=== PATIENT | female | born 1950 | race Caucasian/White ===

== ENCOUNTER → 2016-12-14 | Outpatient (CLI) | payer OTHER ==
--- NOTE | 2016-12-14 11:44 | MM ---
Reason for exam: additional evaluation requested from abnormal screening. Last mammogram was performed less than 1 month ago. History: Patient is postmenopausal. Family history of breast cancer in mother and breast cancer in grandmother. Benign stereotactic core biopsy of the left breast, March 27, 1999. Core biopsy of the left breast. Physical Findings: Nurse did not find any significant physical abnormalities on exam. MG Work Up Mamm w CAD LT LM, spot compression MLO, and spot compression CC view(s) were taken of the left breast. Prior study comparison: November 30, 2016, bilateral MG screening mammo w CAD. December 28, 2013, bilateral digital screening mammo w/CAD. Density upper outer left breast persists. Ultrasound is recommended. These results were verbally communicated with the patient and result sheet given to the patient on 12/14/13. ASSESSMENT: Incomplete: need additional imaging evaluation, BI-RAD 0 RECOMMENDATION: Ultrasound of the left breast.
--- NOTE | 2016-12-14 11:47 | USB ---
Reason for exam: additional evaluation requested from abnormal screening. History: Patient is postmenopausal. Family history of breast cancer in mother and breast cancer in grandmother. Benign stereotactic core biopsy of the left breast, March 27, 1999. Core biopsy of the left breast. US Breast Workup Limited LT Left breast ultrasound demonstrates a 3 x 3 x 3mm cystic lesion at 2 o'clock, 5cm from nipple. These results were verbally communicated with the patient and result sheet given to the patient on 12/14/16. ASSESSMENT: Benign, BI-RAD 2 RECOMMENDATION: Return to routine screening mammogram schedule for both breasts.
== END | disposition home or self-care (01) ==
LOC: RADMAMWWP 10:34
PROVIDERS: ATTEND Internal Medicine
DX: R92.8 Other abnormal and inconclusive findings on diagnostic imaging of breast (principal)
CPT/HCPCS: 76642; G0206

== ENCOUNTER → 2018-03-04 | Outpatient (CLI) | payer OTHER ==
--- NOTE | 2018-03-04 09:09 | XR ---
EXAMINATION TYPE: XR chest 2V DATE OF EXAM: 03/04/2018 COMPARISON: 12/25/2009 INDICATION: Recurrent pneumonia, pain in lungs and right upper quadrant TECHNIQUE: Frontal and lateral views of the chest are obtained. FINDINGS: The heart size is normal. The pulmonary vasculature is normal. The lungs are clear. IMPRESSION: 1. No acute pulmonary process.
== END | disposition home or self-care (01) ==
LOC: RADXRMAIN 08:06
PROVIDERS: ATTEND Family Medicine
DX: R91.8 Other nonspecific abnormal finding of lung field (principal)
CPT/HCPCS: 71046

== ENCOUNTER → 2018-03-12 | Outpatient (CLI) | payer MEDICARE, OTHER ==
--- NOTE | 2018-03-12 09:37 | US ---
EXAMINATION TYPE: US abdomen complete DATE OF EXAM: 03/12/2018 COMPARISON: CT 2013, ultrasound 06/10/2013 CLINICAL HISTORY: R10.11 RIGHT UPPER QUADRANT PAIN. Intermittent epigastric pain x 5 months EXAM MEASUREMENTS: Liver Length: 15.9 cm Gallbladder Wall: 0.2 cm CBD: 0.4 cm Spleen: 12.0 cm Right Kidney: 10.3 x 5.0 x 4.8 cm Left Kidney: 10.8 x 4.8 x 6.4 cm Difficult and limited study due to patient body habitus Pancreas: obscured by overlying midline bowel gas Liver: multiple cystic lesions throughout with largest in right lobe measuring 2.3 x 2.4 x 2.9cm Gallbladder: hyperechoic echoes within gallbladder, possible sludge Evidence for sonographic Alexander's sign: no CBD: visualized portions wnl, limited by overlying bowel gas Spleen: wnl Right Kidney: 2.2 x 1.6 x 1.6cm echogenic shadowing focus inferior pole, 4.7 x 2.4 x 2.5cm bilobed h ypoechoic area superior pole with 1.0cm echogenic shadowing focus along posterior wall Left Kidney: 0.8 x 0.6 x 0.9cm echogenic shadowing focus inferior pole Upper IVC: wnl Abd Aorta: visualized portions wnl, limited by overlying midline bowel gas IMPRESSION: 1. Sludge within the gallbladder. 2. Multiple hepatic cysts. 3. Right renal stones. 4. Mild fatty infiltration of the liver. 5. Complex cyst superior pole right kidney. Follow-up is recommended.
== END | disposition home or self-care (01) ==
LOC: RADUSWWP 07:53
PROVIDERS: ATTEND Family Medicine
DX: N20.0 Calculus of kidney (principal); K76.89 Other specified diseases of liver; K82.8 Other specified diseases of gallbladder; K76.0 Fatty (change of) liver, not elsewhere classified; N28.1 Cyst of kidney, acquired
CPT/HCPCS: 76700

== ENCOUNTER → 2018-12-11 | Outpatient (CLI) | payer MEDICARE ==
--- NOTE | 2018-12-11 12:23 | NM ---
EXAMINATION TYPE: NM stress cardiolite complete DATE OF EXAM: 12/11/2018 COMPARISON: NONE HISTORY: 68-year-old female cardiac murmur and chest pain TECHNIQUE: After the intravenous administration of 10.1 mCi Tc 99m Sestamibi - Rest images obtained 45 minutes post injection. The patient exercised using a AMY protocol and 1 minute prior to peak exercise was injected with 25.8 mCi Tc 99m Sestamibi - Stress images obtained 15 minutes post injecti on. FINDINGS: Targeted heart rate was achieved during performance of the study (132 BPM with a goal of 131 BPM). To melvin exercise time was 3 minutes 59 seconds. Review of stress and rest SPECT images demonstrates decreased intensity of color along the basal infe rior wall, accentuated on stress imaging on the axial SPECT images. There is also decreased perfusion along the basal anterior wall seen on both rest and stress. This could represent an old infarct or a ttenuation artifact. No distinct perfusion abnormality. Gated analysis shows normal wall motion with an estimated left ventricular ejection fraction of 67 %. TID is calculated at 1.04, within normal l imits. IMPRESSION: 1. Very subtle findings with the intensity of color along the basal inferior wall, decreased on stres s. No evelia perfusion defect. A subtle small area of reversibility is difficult to exclude. Further c linical and EKG correlation recommended. 2. Fixed decreased perfusion basal anterior wall suggests either attenuation artifact or a small old infarct.
--- NOTE | 2018-12-12 07:41 | EST ---
EXERCISE STRESS DATE OF SERVICE: 12/11/2018 AGE: 68 SEX: Female HT: 68" WT: 255 pounds PROTOCOL: Cardiolite Toño STAGE: II DURATION OF EXERCISE: Nearly 4 minutes. HEART RATE REST: 56 BLOOD PRESSURE REST: 140/77 MAXIMUM HEART RATE ACHIEVED: 132 MAXIMUM BLOOD PRESSURE: 253/56 85% MPHR: 131 100% MPHR: 154 METS: 5.6 INDICATIONS: Chest pain, murmur. CLINICAL INFORMATION: This is a walking stress Cardiolite scan. Baseline EKG revealed normal sinus rhythm with inferolateral ST-segment depression making this an inconclusive stress test to interpret by EKG criteria. Patient walked on standard Toño protocol for nearly 4 minutes, achieved a maximal heart rate of 132 beats per minute which is 85% of predicted maximal. Rare isolated PVCs were noted. She developed some fatigue and shortness of breath. There was a lot of artifact. There was one ventricular couplet noted. EKG remained inconclusive, but patient did not have angina. By EKG criteria, this is an inconclusive stress test with resting EKG changes, limited exercise capacity, but no subjective symptoms of angina. The nuclear scan results, which are more pertinent, will be reported by the radiologist. MMODL / IJN: [id number] /
--- NOTE | 2018-12-13 06:08 | ECHOF ---
Referral Reason:R01.1 Cardiac Murmur R07.89 Chest Pain MEASUREMENTS -------- HEIGHT: 172.7 cm WEIGHT: 106.6 kg BP: RVIDd: 2.8 cm (< 3.3) IVSd: 1.1 cm (0.6 - 1.1) LVIDd: 4.7 cm (3.9 - 5.3) LVPWd: 1.2 cm (0.6 - 1.1) IVSs: 1.4 cm LVIDs: 2.6 cm LVPWs: 1.3 cm LAESV Index (A-L): 27.19 ml/m Ao Diam: 2.9 cm (2.0 - 3.7) AV Cusp: 2.0 cm (1.5 - 2.6) LA Diam: 3.6 cm (2.7 - 3.8) MV EXCURSION: 16.659 mm (> 18.000) MV EF SLOPE: 118 mm/s (70 - 150) EPSS: 0.9 cm MV E Travon: 1.03 m/s MV DecT: 212 ms MV A Travon: 0.65 m/s MV E/A Ratio: 1.59 RAP: 5.00 mmHg RVSP: 11.16 mmHg FINDINGS -------- Sinus rhythm. This was a technically adequate study. The left ventricular size is normal. There is borderline concentric left ventricular hypertrophy. Overall left ventricular systolic function is normal with, an EF between 55 - 60 %. The right ventricle is normal in size and function. Normal LA size by volume 22+/-6 ml/m2. The right atrium is normal in size. There is mild aortic valve sclerosis. There is no evidence of aortic regurgitation. There is no e vidence of aortic stenosis. The mitral valve is normal. There is trace to mild mitral regurgitation. Trace tricuspid regurgitation present. Right ventricular systolic pressure is normal at < 35 mmHg. There is no evidence of pulmonary hypertension. Trace/mild (physiologic) pulmonic regurgitation. The aortic root size is normal. Normal inferior vena cava with normal inspiratory collapse consistent with estimated right atrial pre ssure of 5 mmHg. Echo free space indicative of a pericardial fat pad. There is no pericardial effusion. CONCLUSIONS -------- 1. Sinus rhythm. 2. This was a technically adequate study. 3. The left ventricular size is normal. 4. There is borderline concentric left ventricular hypertrophy. 5. Overall left ventricular systolic function is normal with, an EF between 55 - 60 %. 6. Normal LA size by volume 22+/-6 ml/m2. 7. There is mild aortic valve sclerosis. 8. There is trace to mild mitral regurgitation. 9. Trace tricuspid regurgitation present. 10. Right ventricular systolic pressure is normal at < 35 mmHg. 11. There is no evidence of pulmonary hypertension. 12. Trace/mild (physiologic) pulmonic regurgitation. 13. The aortic root size is normal. 14. Echo free space indicative of a pericardial fat pad. 15. There is no pericardial effusion. ELECTRIC SIGN ASSEMBLER: Joe Martin RDCS
== END ==
LOC: RADNMMAIN 07:57
PROVIDERS: ATTEND Family Medicine
DX: R01.1 Cardiac murmur, unspecified (principal); R07.89 Other chest pain
CPT/HCPCS: 93017; 93306; 78452; A9500

== ENCOUNTER → 2018-12-15 | Outpatient (CLI) | payer MEDICARE ==
--- NOTE | 2018-12-18 16:58 | MM ---
Reason for exam: screening (asymptomatic). Last mammogram was performed 2 years ago. History: Patient is postmenopausal. Family history of breast cancer in mother and breast cancer in grandmother. Benign stereotactic core biopsy of the left breast, March 27, 1999. Core biopsy of the left breast. MG 3D Screening Mammo W/Cad Bilateral CC and MLO view(s) were taken. Prior study comparison: December 14, 2016, left breast MG work up mamm w CAD LT. November 30, 2016, bilateral MG screening mammo w CAD. The breast tissue is heterogeneously dense. This may lower the sensitivity of mammography. There are multiple benign-appearing right round, and oval circumscribed masses waxing and waning since 2014 most compatible with cysts. On the left breast in the upper outer quadrant at middle depth there is a new 8 mm mass in comparison to 2014. ASSESSMENT: Incomplete: need additional imaging evaluation, BI-RAD 0 RECOMMENDATION: Special view mammogram of the left breast.
== END ==
LOC: RADMAMWWP 09:39
PROVIDERS: ATTEND Family Medicine
DX: Z12.31 Encounter for screening mammogram for malignant neoplasm of breast (principal)
CPT/HCPCS: 77063; 77067

== ENCOUNTER → 2019-01-06 | Outpatient (CLI) | payer MEDICARE ==
--- NOTE | 2019-01-06 10:59 | MM ---
Reason for exam: additional evaluation requested from abnormal screening. Last mammogram was performed 1 month ago. History: Patient is postmenopausal. Family history of breast cancer in mother at age 75 and breast cancer in grandmother at age 88. Benign stereotactic core biopsy of the left breast, March 27, 1999. Core biopsy of the left breast. Took hormonal contraceptives for 9 months. Physical Findings: Nurse did not find any significant physical abnormalities on exam. MG 3D Work Up W/Cad LT Spot compression CC and spot compression MLO view(s) were taken of the left breast. Prior study comparison: December 15, 2018, bilateral MG 3d screening mammo w/cad. December 14, 2016, left breast MG work up mamm w CAD LT. There are scattered fibroglandular densities. Finding: There is a persistent 9 mm equal density (isodense), indistinct irregular mass located 7 cm from the nipple in the upper outer quadrant, middle position of the left breast. New finding since December 14, 2016. These results were verbally communicated with the patient and result sheet given to the patient on 01/06/19. ASSESSMENT: Incomplete: need additional imaging evaluation, BI-RAD 0 RECOMMENDATION: Ultrasound of the left breast.
--- NOTE | 2019-01-06 11:01 | USB ---
Reason for exam: additional evaluation requested from abnormal screening. History: Patient is postmenopausal. Family history of breast cancer in mother at age 75 and breast cancer in grandmother at age 88. Benign stereotactic core biopsy of the left breast, March 27, 1999. Core biopsy of the left breast. Took hormonal contraceptives for 9 months. US Breast Workup Limited LT Left limited breast ultrasound including focal area of concern, retroareolar and axilla demonstrates a 0.8 x 0.3 x 0.4cm oval, solid lymph node at 2 o'clock. These results were verbally communicated with the patient and result sheet given to the patient on 01/06/19. ASSESSMENT: Probably benign, BI-RAD 3 RECOMMENDATION: Surgical consultation and stereotactic core biopsy of the left breast. Called Dr. Cronin with mammographic findings and has scheduled an appointment for the patient for 02/12/19 at 8:[address] Thompson. Biopsy scheduled for 01/22/19 at 10:20. PRELIMINARY REPORT CALLED AND FAXED TO DR. THOMPSON ON 01/06/19.
== END | disposition home or self-care (01) ==
LOC: RADMAMWWP 08:46
PROVIDERS: ATTEND Family Medicine
DX: R92.8 Other abnormal and inconclusive findings on diagnostic imaging of breast (principal)
CPT/HCPCS: 77065; 76642; G0279; 77061

== ENCOUNTER → 2019-01-22 | Day surgery (SDC) | payer MEDICARE ==
[2019-01-22 09:36] VITALS: RESP 16; BMI 36.0
[2019-01-22 11:52] VITALS: BP 124/77; PULSE 54; TEMP 98.1
--- NOTE | 2019-01-22 17:31 | MM ---
EXAMINATION TYPE: MG stereo VAD BX LT DATE OF EXAM: 01/22/2019 COMPARISON: 12/15/2018 and 01/06/2019 CLINICAL HISTORY: 68-year-old female referred for biopsy of left breast focal asymmetry. No ultrasound correlate. TECHNIQUE: Stereotactic guided core biopsy of the 12:00 left breast. FINDINGS: The procedure of stereotactic guided core biopsy was explained to the patient. Benefits, alternatives, and risks were discussed. An informed consent was then obtained. The [facility] pathway for biopsy was chosen. [facility] pathway was a lateral approach. I performed the localization followed by the remainder of the procedure. A vacuum assisted biopsy gun was used to obtain multiple core samples. The patient tolerated the procedure well without any immediate complication. The patient was kept in the radiology department for short stay after the procedure and then discharged home in stable condition. Post biopsy mammogram shows the clip to appear in satisfactory position relative to the targeted area of concern on the preprocedure images, 2:00 position. IMPRESSION: SUCCESSFUL, UNCOMPLICATED STEREOTACTIC GUIDED CORE BIOPSY OF THE 2:00 LEFT BREAST FOCAL ASYMMETRY THAT HAD NO SONOGRAPHIC CORRELATE. INTERMEDIATE SUSPICION. FULL PATHOLOGY RESULTS TO FOLLOW. 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 See Surgical Pathology Cancer Case Summary. Recommendation Surgical consult of the left breast. ALTON
== END ==
LOC: RADMAMWWP 09:04
PROVIDERS: ATTEND Surgery
DX: C50.812 Malignant neoplasm of overlapping sites of left female breast (principal); Z17.0 Estrogen receptor positive status [ER+]
CPT/HCPCS: 88305; 88342; 88341; 19081; A4648; J2001

== ENCOUNTER → 2019-02-18 | Outpatient (CLI) | payer MEDICARE ==
--- NOTE | 2019-02-18 13:44 | BMR ---
EXAMINATION TYPE: MR breast BILAT wo/w con DATE OF EXAM: 02/18/2019 COMPARISON: Three-D bilateral breast mammogram December 15, 2018 BI-RADS 0. Diagnostic left breast rose mary mogram January 06, 2019 BI-RADS 0, left breast ultrasound January 06, 2019 BI-RADS 3. HISTORY: Left Breast Cancer diagnosed January 22, 2019 on stereotactic guided core biopsy, well-diff erentiated infiltrating ductal carcinoma with mucinous features. CONTRAST: Multiplanar, multisequence images of the breasts were acquired utilizing 11 mL intravenous Gadavist g adolinium contrast. TECHNIQUE: A series of fat and water weighted images in the long and short axis views of both breasts are obtained in conjunction with dynamic contrast MRI with subtraction technique. Three-dimensional and additional postprocessing imaging is created on independent workstation and reviewed during offi cial interpretation of this study. FINDINGS: Scattered fibroglandular tissue is present bilaterally. Postcontrast images show mild to mo derate symmetric fibroglandular enhancement. Axial T2-weighted images show no significant cysts or cy stic masses bilaterally. No suspicious fat-containing masses are noted on nonfat saturation T1 weight ed images. Delayed post contrast images show no concerning intramammary adenopathy. With regard to the right breast no suspicious skin thickening is present. No enhancing masses or path ologic enhancement is identified. Chest wall is intact. No suspicious axillary adenopathy is seen. With regard to the left breast there is susceptibility artifact from biopsy clip anterior depth upper slight medial aspect noted. Artifact from biopsy proven carcinoma is less well-seen on MRI but felt present near level of round enhancing 3 to 4 mm focus image 248 series 702 anterior to middle depth o uter upper aspect, artifact is along right posterior margin of this round enhancing area. Subtraction images show small 1 to 2 mm linear area of heterogeneous enhancement with washout immediately anteri or to the biopsy clip. Extending medially and inferiorly as well as towards the peripherally and ante riorly there is a linear area of enhancement over roughly 3.0 cm segment that shows contiguous uptake could reflect product of recent sampling from a lateral approach as corresponds to stereotactic guid ed pathway. Remainder of left breast shows no evidence of pathologic enhancement or enhancing masses to suggest multicentric disease. No suspicious axillary adenopathy is noted. Prominent but benign sub centimeter lymph node is present. Chest wall is intact. Incidental partial visualization of several thin-walled cysts scattered throughout the liver on infer ior most images obtained. IMPRESSION: Round 4 mm enhancing lesion along anterolateral aspect of biopsy clip with additional 1 t o 2 mm suspicious linear enhancement immediately anterior to biopsy clip felt to correspond to biopsy -proven carcinoma in the left breast. No multicentric disease in the left breast. No MRI evidence for invasive malignancy in the right breast. BI-RADS 6 biopsy-proven carcinoma left breast. BI-RADS 2 benign findings right breast. Recommendation: Appropriate surgical management of new biopsy-proven carcinoma left breast.
== END ==
LOC: RADMRIMAIN 08:04
PROVIDERS: ATTEND Surgery
DX: C50.912 Malignant neoplasm of unspecified site of left female breast (principal)
CPT/HCPCS: 82565; 36415; C8908; A9585; 77049

== ENCOUNTER 2019-03-05 09:47 | Day surgery (SDC) | payer MEDICARE ==
[2019-03-04 09:48] VITALS: BMI 36.0
--- NOTE | 2019-03-05 08:20 | P.HPADDEND ---
H&P Addendum H&P Addendum Date: 03/05/19 As per previously dictated history and physical patient with recently diagnosed left breast cancer. Patient underwent MRI which did not show any other suspicious abnormalities. Patient also evaluated by oncology. Genetic testing is apparently being scheduled however the patient is nondistended and bilateral mastectomy regardless of those findings and would like to proceed with breast conservation. Patient was contacted by phone. We have scheduled her for a left breast lumpectomy with sentinel lymph node biopsy/injection with wire localization at this time. Potential need for completion axillary node dissection discussed. Risks of bleeding, infection, seroma, nerve injury, scarring, dimpling, pain, potential need for additional surgeries, recurrence reviewed. Patient understands and wishes to proceed.
--- NOTE | 2019-03-05 08:22 | P.NAPBC ---
NAPBC Queries - NAPBC Queries Was patient's case review presented at [facility] tumor board? If no, comment.: No Was patient's pathology reviewed at [facility]? If no, comment.: Yes Was breast conservation surgery offered? If no, comment.: Yes Was sentinel node biopsy offered? If no, comment.: Yes Was diagnosis confirmed by percutaneous core biopsy? If no, comment.: Yes If mastectomy patient, was a preop referral to a reconstructive surgeon offered?: No Clinical Stage: Stage I
[~2019-03-05 09:47] MED LIST: DEXAMETHASONE SOD PHOSPHATE 10 MG/ML 1 ML VIAL IV ONE; HEPARIN SODIUM,PORCINE 5,000 UNIT/ML 1 ML VIAL SQ ONE; LACTATED RINGERS 1,000 ML IV SCH; LIDOCAINE 1% 20 ML VIAL (10MG/ML) FOR IV START INTRADERMA PRN; MIDAZOLAM (PF) 2 MG/2 ML VIAL IV PRN; ONDANSETRON 4 MG/2 ML VIAL IVP ONE; Pre Op ABX Message 1 EACH MISC MISCELLANE ONE; SCOPOLAMINE 1.5MG/72HR PATCH TRANSDERM ONE
[2019-03-05] MEDS ORDERED: ALPRAZolam 0.25 MG TAB PO ONE (10:59)
[2019-03-05 11:27] LABS: Glucose,Whole Blood 100 mg/dL (75-99)
[2019-03-05] MEDS ORDERED: SODIUM BICARB 4% 5 ML VIAL (0.48 MEQ/ML) MISCELLANE ONE (11:54)
[2019-03-05] MEDS ORDERED: LIDOCAINE 1% INJ 10MG/ML (20 ML MDV) SQ ONE (11:54)
--- NOTE | 2019-03-05 13:08 | NM ---
EXAMINATION TYPE: NM sentinel node injection DATE OF EXAM: 03/05/2019 COMPARISON: NONE HISTORY: Left-sided breast cancer. TECHNIQUE AND FINDINGS: The procedure of sentinel lymph node injection was explained to the patient. The benefits, alternatives, and risks were discussed. An informed consent was then obtained. Overlying skin is cleaned with sterile alcohol. Following this, 548 uCi Tc99m Tilmanocept was inject ed in the upper outer aspect of the left nipple intradermally. The patient tolerated the procedure well without any immediate complication. The patient was kept in the radiology department for short stay after the procedure and then taken to surgery for surgical p rocedure what is presumed intraoperative gamma probe will be used for sentinel lymph node detection. IMPRESSION: Left breast radiotracer injection for sentinel node localization as above.
[2019-03-05] MEDS ORDERED: METHYLENE BLUE 10 MG/ML (10 ML VIAL) ONE (13:48)
[2019-03-05] MEDS ORDERED: ePHEDrine SULFATE/0.9% NACL/PF 50 MG/5 ML SYRINGE IV ONE (13:48)
[2019-03-05] MEDS ORDERED: fentaNYL (PF) 50 MCG/ML 2 ML AMP ONE (13:48)
[2019-03-05] MEDS ORDERED: PROPOFOL 10 MG/ML 20 ML VIAL IV ONE (13:48)
[2019-03-05] MEDS ORDERED: MIDAZOLAM 2 MG/2 ML VIAL ONE (13:48)
[2019-03-05] MEDS ORDERED: LIDOCAINE 1% INJ 10MG/ML (20 ML MDV) ONE (13:48)
[2019-03-05] MEDS ORDERED: METHYLENE BLUE 10 MG/ML (10 ML VIAL) MISCELLANE ONE (14:06)
[2019-03-05] MEDS ORDERED: SODIUM CHLORIDE 0.9% 50 ML with ceFAZolin 2,000 MG IV ONE ×2 (14:11)
[2019-03-05] MEDS ORDERED: BUPIVACAIN-EPI 0.5%-1:200,000 30 ML VIAL SQ ONE (15:22)
[2019-03-05 16:01] VITALS: TEMP 97.7
[2019-03-05] MEDS: HYDROmorphone 0.5 MG/0.5 ML SYRINGE IVP PRN ×2 (16:07→16:16)
[2019-03-05] MEDS ORDERED: HYDROcodone/APAP 5-325MG 1 EACH TAB PO PRN (16:10)
[2019-03-05] MEDS ORDERED: NALOXONE 0.4 MG/ML 1 ML VIAL IV PRN (16:10)
--- NOTE | 2019-03-05 16:12 | P.OP ---
Date of Procedure: 03/05/19 Procedure(s) Performed: REOPERATIVE DIAGNOSIS: Left breast cancer POSTOPERATIVE DIAGNOSIS: Same PROCEDURE: Left Breast wire localization lumpectomy with sentinel lymph node biopsy SURGEON: Donna EBL: Minimal ANESTHESIA: General COMPLICATIONS: None OPERATIVE PROCEDURE: Patient was placed on the operating room table in the supine position. 2 mL of methylene blue was injected into the subareolar space. The breast was then massaged for 5 minutes. The breast was prepped and draped in usual sterile fashion. The left axilla was addressed at that time. The hot spot in the left axilla was identified. A small curvilinear incision was made using the scalpel. Dissection down through the subcutaneous tissues took place using electrocautery. Using the neoprobe I identified a total of 3 sentinel lymph nodes. 2 of these were blue in color. These were all removed and sent to pathology for close examination. Frozen sections from these lymph nodes were negative for metastatic disease. No bleeding was seen. The subcutaneous tissues were closed using 3-0 Vicryl sutures. The skin was closed using 4-0 Monocryl sutures. The wire entrance site was then addressed. This was present at the 3:00 location. A curvilinear incision was made adjacent to the wire entrance site. I followed the wire down into the breast tissue. An adequate lumpectomy specimen then took place around the wire. Margins of 1.5-2 cm worth attempted to be achieved. Palpation of the specimen suggested that the posterior and lateral margins were somewhat close. I took an additional margin posteriorly and laterally and these margins were painted the appropriate color on the new margin side. The initial specimen was also painted the appropriate 6 colors. Clips were used to identify the lumpectomy cavity. The clip was confirmed to be within the lumpectomy specimen by radiology. The subcutaneous tissues were closed using 3-0 Vicryl sutures. The skin was closed using a running 4-0 Monocryl stitch. Skin glue and sterile dressings were then applied. DISPOSITION: Stable to recovery room
[2019-03-05 16:17] VITALS: RESP 16
[2019-03-05 17:03] VITALS: BP 128/73; PULSE 62
--- NOTE | 2019-03-05 20:25 | MM ---
EXAMINATION TYPE: MG pre op needle loc LT, MG surgical specimen LT DATE OF EXAM: 03/05/2019 COMPARISON: Stereotactic guided core biopsy January 22, 2019. CLINICAL HISTORY: Biopsy-proven cancer January 22, 2019. TECHNIQUE: Needle localization with wire placement and surgical excision of area of concern in the right breast. FINDINGS: The procedure of needle localization with wire placement and than surgical excision was explained to the patient. Benefits, alternatives, and risks were discussed. An informed consent was then obtained. The shortest pathway for procedure was chosen. Shortest pathway was lateral approach. The overlying skin was prepped and draped in usual sterile fashion. Lidocaine buffered with bicarbonate was used as anesthetic into the skin and subcutaneous tissue up to the level of area of concern. A 5 cm needle was used. It was placed via a lateral approach under mammographic guidance. Subsequent 90 degrees mammogram show the needle to be in satisfactory position relative to the targeted area. At this point, wire was placed and the needle was withdrawn. The wire was fixed to patient's skin. Images were marked for surgeon. The patient tolerated the procedure well without any immediate complication. The patient was kept in the radiology department for short stay after the procedure and then taken to surgery for surgical excision. Targeted clip and wire are identified in specimen mammogram. The patient was kept in hospital for short stay after the procedure and then discharged home in stable condition. IMPRESSION: Successful, uncomplicated needle localization with wire placement and surgical excision of targeted clip in the right breast, full pathology results to follow. Pathology Results: Malignant A. SENTINEL LYMPH NODE #1, BIOPSY: One lymph node negative for metastatic adenocarcinoma by routine H+E as well as appropriately controlled immunohistochemical stains for TROY and Cytokeratin 7. B. SENTINEL LYMPH NODE #2, BIOPSY: Lymph node negative for metastatic adenocarcinoma by H+E as well as appropriately controlled immunohistochemical stains for Cytokeratin 7 and TROY. C. SENTINEL LYMPH NODE #3, BIOPSY: One lymph node negative for metastatic adenocarcinoma as documented by H+E as well as appropriately controlled immunohistochemical stains for Cytokeratin 7 and TROY. D. 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 Tumor is 5.9 mm away from the closest green inked margin of resection. Please see Surgical Pathology Cancer Case Summary. E. LEFT BREAST, EXTENDED POSTERIOR LATERAL MARGIN, EXCISION: Fibrocystic change spectrum lesions including duct hyperplasia and duct cystic changes. Negative for carcinoma. Recommendation Surgical consult of the left breast. [facility]
== END 2019-03-05 17:38 | disposition home or self-care (01) ==
LOC: OR 09:47
PROVIDERS: ATTEND Surgery
DX: C50.912 Malignant neoplasm of unspecified site of left female breast (principal); N60.12 Diffuse cystic mastopathy of left breast; E78.5 Hyperlipidemia, unspecified; I12.9 Hypertensive chronic kidney disease with stage 1 through stage 4 chronic kidney disease, or unspecified chronic kidney disease; N18.9 Chronic kidney disease, unspecified; I69.398 Other sequelae of cerebral infarction; Z87.891 Personal history of nicotine dependence; Z80.3 Family history of malignant neoplasm of breast; K21.9 Gastro-esophageal reflux disease without esophagitis; Z79.82 Long term (current) use of aspirin; Z79.1 Long term (current) use of non-steroidal anti-inflammatories (NSAID); Z79.899 Other long term (current) drug therapy; Z88.2 Allergy status to sulfonamides
CPT/HCPCS: 88342; 88331; 88307; 88341; 76098; 19281; 38792; 19301; 38525; A9520; J2250; J1644; J1100; J2405; J2001; Q9968; J3010; J0690; J2704; J1170